=== PATIENT | male | born 1975 | race Two or more races ===

== ENCOUNTER → 2020-02-15 13:50 | Outpatient (BNVA) | payer SELFPAY | PROVIDERS: PCP Internal Medicine; Referring Provider Internal Medicine; Visit Provider Urology | DX: Z76.89 Persons encountering health services in other specified circumstances (principal) ==

== ENCOUNTER → 2020-03-28 13:21 | Outpatient (BNVA) | payer OTHER, SELFPAY | PROVIDERS: PCP Internal Medicine; Visit Provider Urology | DX: Z76.89 Persons encountering health services in other specified circumstances (principal) ==

== ENCOUNTER 2020-04-16 06:28 | Day surgery (SDC) | payer OTHER, SELFPAY ==
--- NOTE | 2020-04-13 12:13 | HO.ANESPROP2 ---
Documented by User: Shanon Suazo 04/13/20 12:13 HPI - Anesthesia Eval Consult details Narrative: 44yo M for Circumcision PMFSH Past Medical History Medical History Asthma Social History Social History Smoking Status: Never smoker Use of substances other than those prescribed or required for medical reasons: No Advance Directives: No Advance Directives Information Provided: Yes Meds Allergies Allergy/AdvReac Type Severity Reaction Status Date / Time No Known Allergies Allergy Verified 04/16/20 06:43 [No Known Allergies*] Exam Exam Date and Time: April 13, 2020 121 Assessment and Plan Assessment Anesthesia Assessment: Chart Reviewed Documented by User: Ariane Seaman 04/16/20 10:14 [facility] Past Medical History Medical History Asthma Social History Social History Smoking Status: Never smoker Use of substances other than those prescribed or required for medical reasons: No Advance Directives: No Advance Directives Information Provided: Yes Meds Allergies Allergy/AdvReac Type Severity Reaction Status Date / Time No Known Allergies Allergy Verified 04/16/20 06:43 [No Known Allergies*] Exam Airway Mallampati Class: II TM Dist: >3cm Neck ROM: Full Assessment and Plan Assessment Anesthesia Assessment: Anesthesia Plan Discussed and Chart Reviewed Final Anesthetic Review NPO: Yes ASA Class: II Final Preanesthetic Review: No Changes in Pt Med Stat, Meds/Allgs Chart Reviewed, Consent Obtained/Reviewed and Anes Risks/Benef Reviewed Patient Risk: Low Procedure Risk: Low Assessment/Block/Sedation in SS: Assess/Block/Sedation-SS Anesthetic Plan Anesthetic Plan: GA Disposition: Standard PACU
[2020-04-16 06:45] VITALS: BMI 24.5
[2020-04-16 06:50] VITALS: BP 132/90; PULSE 88; RESP 16; TEMP 36.8; O2SAT 97
[2020-04-16] MEDS: Lactated Ringers 1,000 ML 100 ML IVCONT (07:05)
[2020-04-16] MEDS: ceFAZolin Sodium/Dextrose,Iso 2 GM/50 ML PIGGYBACK IV (07:05)
--- NOTE | 2020-04-16 09:50 | MHC.SHP ---
Pre-Procedural Eval Section A The patient is an INPATIENT: No Changes since office visit: No Cold of Flu in the past 2 weeks, No New Medical Problems, No Changes in Medication and No Patient answered all questions The History & Physical has been completed within 30 days and I have reviewed it.: Yes Section B Chief Complaint: balanitis Allergies: Allergies Allergy/AdvReac Type Severity Reaction Status Date / Time No Known Allergies Allergy Verified 04/16/20 06:43 [No Known Allergies*] Plan I have reviewed the history and physical and performed a pertinent physical examination on my patient. No changes have occurred unless specified. circumcision
[2020-04-16 10:45] VITALS: BP 117/74; PULSE 76; RESP 16; TEMP 36.2; O2SAT 97
[2020-04-16 10:50] VITALS: BP 118/79; PULSE 87; RESP 16; O2SAT 96
[2020-04-16 10:55] VITALS: BP 101/71; PULSE 87; RESP 16; O2SAT 97
--- NOTE | 2020-04-16 10:57 | P.OP_ITS ---
Operative Note Operative Note Date of Service: 04/16/20 Narrative: PreOperative Diagnosis: Recurrent balanitis Post Operative Diagnosis: Recurrent balanitis Procedure: Circumcision plus frenular release Surgeon: Dr Shay Velasco Anesthesia: Local plus sedation Indications for procedure: This is a 44-year-old male. Recurrent balanitis. No respond to conservative therapy. Also noted to have been attached frenulum which give some pain during intercourse. Recommend circumcision with frenular release. Risks and benefits particularly related to scarring or bruising are discussed. Procedure: After informed consent was verified the patient was brought to the operating room and placed in a supine position. anesthesia was administered per protocol. The patient was prepped and draped in sterile fashion. Safety pause time-out performed. Antibiotics being given. Using a marking pen the proximal incision along with the sulcus of the penis was marked. Using a sharp knife and the incision was made for the proximal incision taken down to the avascular plane. The foreskin was retracted. A 2nd incision was made approximately 6 mm from the coronal surface circumferentially. His frontal was noticed to be attached. The frenulum was clamped and divided. This released the glans. The distal sulcal incision was completed. A sleeve of tissue was raised and removed from the penile shaft. All bleeding was controlled. Stay sutures were placed in a quadrant fashion reattaching the areas after hemostasis obtained. 3-0 chromic used for stay sutures. Each quadrant was then reattached using 3 4- 0 chromic interrupted sutures. At the completion of procedure the incision was washed and dried. A final dressing was placed consisting of bacitracin, Xeroform gauze, Raymond wrap and Coban. He tolerated the procedure well was extubated in the operating room transferred in stable condition recovery area Pathology: Recurrent balanitis Drains: None
--- NOTE | 2020-04-16 10:57 | PM.OP ---
Brief Operative Note Date of Service: 04/16/20 Pre-op diagnosis: Recurrent balanitis Post-op diagnosis: same Procedure: Circumcision Surgeon: Shay Velasco MD Anesthesia: MAC Estimated blood loss (mL): 0 Pathology: none sent Condition: stable Disposition: same day
[2020-04-16 11:00] VITALS: BP 126/89; PULSE 79; RESP 16; O2SAT 98
[2020-04-16 11:15] VITALS: BP 124/88; PULSE 78; RESP 16; TEMP 36.2; O2SAT 99
--- NOTE | 2020-04-16 11:46 | HO.POSTANES ---
Post Anesthesia Evaluation Post Anesthesia Evaluation Vital Signs: Vital Signs Temp Pulse Resp BP Pulse Ox 04/16/20 11:15 97.2 F 78 16 124/88 99 04/16/20 11:00 79 16 126/89 98 04/16/20 10:55 87 16 101/71 97 04/16/20 10:50 87 16 118/79 96 04/16/20 10:45 97.1 F 76 16 117/74 97 04/16/20 06:50 98.2 F 88 16 132/90 H 97 Anesthesia: General LMA Mental Status: Awake Pain Control: Satisfactory Nausea/Vomiting: None Hydration: Adequate Anesthesia-Related Issues: No Anes. Related Issues
== END 2020-04-16 11:51 | disposition home or self-care (01) ==
PROVIDERS: PCP Internal Medicine; Visit Provider Urology
PROC: (CPT 54161; principal; 2020-04-16 08:40)
DX: N48.1 Balanitis (principal); J45.40 Moderate persistent asthma, uncomplicated; Z79.899 Other long term (current) drug therapy
CPT/HCPCS: 54161; 88304; J0690; J1100; J2250; J2405; J3010

== ENCOUNTER → 2020-05-18 14:14 | Outpatient (BNVA) | payer OTHER, SELFPAY | PROVIDERS: PCP Internal Medicine; Visit Provider Urology | DX: Z13.89 Encounter for screening for other disorder (principal) | CPT/HCPCS: 99212 ==

== ENCOUNTER → 2020-12-17 10:49 | Outpatient (BNVA) | payer OTHER, SELFPAY | PROVIDERS: PCP Internal Medicine; Visit Provider Internal Medicine | DX: J30.9 Allergic rhinitis, unspecified (principal); J45.909 Unspecified asthma, uncomplicated | CPT/HCPCS: 99212 ==

== ENCOUNTER → 2021-06-12 10:34 | Outpatient (BNVA) | payer OTHER, SELFPAY | PROVIDERS: PCP Internal Medicine; Visit Provider Internal Medicine | DX: J45.909 Unspecified asthma, uncomplicated (principal) | CPT/HCPCS: 99212 ==

== ENCOUNTER → 2022-01-23 15:30 | Outpatient (BNVA) | payer OTHER, SELFPAY | PROVIDERS: PCP Internal Medicine; Visit Provider Internal Medicine | DX: J45.909 Unspecified asthma, uncomplicated (principal) | CPT/HCPCS: 99212 ==

== ENCOUNTER 2022-03-12 15:40 | Emergency (ER) | payer OTHER, SELFPAY ==
[2022-03-12 16:34] VITALS: BP 130/91; PULSE 98; RESP 20; TEMP 36.7; O2SAT 97; BMI 25.3
--- NOTE | 2022-03-12 16:34 | ED.URI ---
HPI - URI/Sore Throat General Chief Complaint: Upper Respiratory Symptoms Stated Complaint: Cough Time Seen by Provider: 03/12/22 18:28 Source: patient Mode of arrival: ambulatory Limitations: no limitations History of Present Illness HPI Narrative: 46-year-old male here with cough and cold symptoms with a history of asthma for the last week. No shortness of breath, chest pain, fevers, chills, leg swelling or leg pain. Patient using Advair and albuterol at home Related Data Previous Rx's Medication Instructions Recorded fluticasone propionate 110 2 puff PO BID #12 ea 08/21/21 mcg/actuation HFA aerosol inhaler (Flovent HFA) Ventolin HFA 90 mcg/actuation 2 puff PO Q4-6H PRN for wheezing 12/18/21 aerosol inhaler (albuterol sulfate) #18 ea montelukast 10 mg tablet 10 mg PO DAILY #90 tabs 12/18/21 fluticasone propionate 115 2 puff inhalation BID 30 days #12 01/23/22 mcg-salmeterol 21 mcg/actuation grams HFA inhaler (Advair HFA) azithromycin 250 mg tablet See Rx Instructions PO .COMPLEX #6 03/12/22 tabs prednisone 20 mg tablet 40 mg PO DAILY #10 tabs 03/12/22 Allergies Allergy/AdvReac Type Severity Reaction Status Date / Time No Known Allergies Allergy Verified 01/23/22 16:24 [No Known Allergies*] Review of Systems Review of Systems: Yes all other systems are reviewed and are negative Constitutional: Constitutional: Reports no additional constitutional complaints, Denies body ache(s), Denies chills, Denies fever(s), Denies headache(s) and Denies weakness Eyes: Eyes: Reports no additional eye complaints and Denies change in vision ENT: Reports system reviewed and no additional complaints, except as documented, Denies dizziness, Denies headache(s), Denies nasal congestion, Denies nasal discharge and Denies neck pain Cardiovascular: Cardiovascular: Reports no additional cardiovascular complaints, Denies chest pain, Denies leg edema and Denies dyspnea Respiratory: Respiratory: Reports no additional respiratory complaints, Reports cough, Denies dyspnea and Reports wheezing Gastrointestinal: Gastrointestinal: Reports no additional gastrointestinal complaints, Denies abdominal pain, Denies diarrhea, Denies nausea and Denies vomiting Genitourinary: Genitourinary: Denies urinary incontinence Musculoskeletal: Musculoskeletal: Reports no additional musculoskeletal complaints, Denies back pain, Denies arthralgias, Denies joint swelling, Denies neck pain, Denies numbness and Denies tingling Integumentary/Breasts: Skin/Breast: Reports system reviewed and no additional complaints, except as docu and Denies rash Neurologic: Reports system reviewed and no additional complaints, except as documented, Denies Abnormal speech present, Denies dizziness, Denies headache(s), Denies numbness, Denies tingling and Denies weakness Allergic/Immunologic: Allergic/Immunologic: Reports wheezing ON LICENSE OF [facility] Past Medical History Attestation statement: The following information was validated with the patient. Source: old records reviewed and nursing notes reviewed Medical History Allergic rhinitis Asthma Asthma Social History Social History Patient Tobacco Use Status: Never used Tobacco Advance Directives: No Advance Directives Information Provided: No Physical Exam Vital Signs: Vital Signs: Last Vital Signs Temp 98.1 F 03/12/22 16:34 Pulse 98 03/12/22 16:34 Resp 20 03/12/22 16:34 BP 130/91 H 03/12/22 16:34 Pulse Ox 97 03/12/22 16:34 O2 Del Method 03/12/22 16:34 BMI result Body Mass Index 25.3 Const: General: cooperative, healthy appearing, comfortable and no acute distress Orientation/consciousness: patient oriented x3 Limitations: no limitations HEENT: Head: Yes normal to inspection Ears: hearing grossly normal bilaterally and TM's normal bilaterally General nose exam: Normal external nose present Face and sinus: Yes normal facial exam Mouth: Normal oral and palatal mucosa present Throat: Yes posterior oropharynx normal, Yes tonsils normal and Yes uvula midline Eyes: General: appearance normal, both eyes and all related structures Pupils: Equal, round and reactive pupils present Neck: Neck: Yes normal visual inspection Chest: Chest palpation & inspection: normal inspection of the chest Resp: Other: Mild expiratory wheezing Effort & Inspection: normal respiratory effort Cardio: Rate: regular rate Rhythm: regular rhythm Peripheral pulses: Peripheral pulses 2+ throughout GI: Inspection: Yes normal to inspection Palpation (GI): Soft to palpation and nontender Auscultation: normal bowel sounds Back/Spine/Pelvis: Thoracic/Lumbar Spine: thoracic and lumbar spine normal to inspection Skin: General skin exam: no rashes or lesions noted Neuro: General: patient oriented x3, no focal motor deficits and normal sensation to monofilament Cranial nerves: Yes Equal, round and reactive pupils present Cognition (Neuro): normal cognition Speech: No Abnormal speech present Gait exam (Neuro): Normal gait present Motor exam (neuro): 5/5 motor strength present throughout Extrem: General: Yes normal to inspection Course Course Course Narrative: This is a rapid medical exam. Defer additional HPI, ROS and PE to prior provider. 46-year-old male here with cough and cold symptoms with a history of asthma for the last week. Vitals stable. Will send testing for flu, COVID, RSV Reevaluation(s) Reevaluation #1: Testing for flu, COVID, RSV are negative. Patient with mild expiratory wheezing on exam. Due to length of symptoms consider bronchitis. Low concern for pneumonia as patient is well-appearing with no fever. Patient will be discharged home with prednisone for 5 days as well as antibiotics for bronchitis. Patient reports adequate supply of inhalers at home. Reviewed worrisome signs and symptoms of when to return to the emergency room. Comfortable discharge home. Perc 0 Medical Decision Making Medical Decision Making MDM Narrative: 46year-old male here with cough and cold symptoms with a history of asthma for the last week Flu, COVID, RSV testing sent from triage. Differential Diagnosis Differential Diagnoses: The differential diagnosis associated with the presentation includes Asthma exacerbation, viral syndrome, bronchitis Lab Data Labs: Lab Results 03/12/22 Range/Units 17:12 Influenza Type A (PCR) NEGATIVE (Negative) Influenza Type B (PCR) NEGATIVE (Negative) RSV RNA Qual (PCR) NEGATIVE (Negative) SARS-CoV-2 RNA (RT-PCR) NEGATIVE (Negative) Discharge Plan Discharge Clinical Impression: Bronchitis Patient Disposition: Home, Self-Care Instructions: Acute Bronchitis (ED) Additional Instructions: Testing for flu, covid and rsv are negative Prescriptions: New prednisone 20 mg tablet 40 mg PO DAILY Qty: 10 0RF azithromycin 250 mg tablet See Rx Instructions .ROUTE .COMPLEX Qty: 6 0RF Rx Instructions: For 250 mg dose pack: take 500 mg today (day 1), then 250 mg for 4 days (days 2-5) No Action Flovent HFA 110 mcg/actuation HFA aerosol inhaler 2 puff PO BID Qty: 12 5RF montelukast 10 mg tablet 10 mg PO DAILY Qty: 90 1RF albuterol sulfate [Ventolin HFA] 90 mcg/actuation HFA aerosol inhaler 2 puff PO Q4-6H PRN (Reason: for wheezing) Qty: 18 3RF Advair HFA 115-21 mcg/actuation HFA aerosol inhaler 2 puff inhalation BID 30 Days Qty: 12 5RF Referrals: Teresa Rodrigez MD [Primary Care Provider] - Stand Alone Forms: Work/School Release Interventions: ED Discharge Assessment Last Done: 03/12/22 18:52
[2022-03-12 18:02] LABS: Influenza A PCR NEGATIVE (Negative); Influenza B PCR NEGATIVE (Negative); Resp Syncy Virus RNA Qual PCR NEGATIVE (Negative); SARS COV2 PCR INHOUSE NEGATIVE (Negative)
== END 2022-03-12 18:52 | disposition home or self-care (01) ==
PROVIDERS: Nurse Practitioner Family; Emergency Provider Emergency Medicine; PCP Internal Medicine
DX: J40 Bronchitis, not specified as acute or chronic (principal); Z20.822 Contact with and (suspected) exposure to COVID-19
CPT/HCPCS: 0241U; 99282; 99283

== ENCOUNTER → 2022-03-26 15:48 | Outpatient (BNVA) | payer OTHER, SELFPAY | PROVIDERS: PCP Internal Medicine; Visit Provider Internal Medicine | DX: J45.909 Unspecified asthma, uncomplicated (principal); Z91.09 Other allergy status, other than to drugs and biological substances | CPT/HCPCS: 99212 ==

== ENCOUNTER 2022-11-20 16:06 | Outpatient (AMB) | payer OTHER, SELFPAY ==
[2022-11-20 16:11] VITALS: BP 112/72; PULSE 67; O2SAT 98; BMI 26.5
--- NOTE | 2022-11-20 16:11 | A.OFFVIS_ITS ---
Intake Vital Signs 11/20/22 16:11 Height 5 ft 7 in Weight 169 lb BMI 26.5 BP 112/72 Blood Pressure Location Lt brachial Position Sitting Pulse 67 Pulse Source Pulse Oximeter Pulse Oximetry (%) 98 Oxygen Delivery Method Room Air Intake Visit Reasons: asthma Intake Note: pt is here for follow up and states he is doing well. Allergies No Known Allergies [No Known Allergies*] Allergy (Verified 11/20/22 16:33) Medication List - Last Reconciled 11/20/22 by Rasta Solis MD fluticasone propion-salmeterol 115-21 mcg/actuation (Advair HFA) 2 puffs inhalation BID 30 days montelukast 10 mg PO DAILY Ventolin HFA 90 mcg/actuation (albuterol sulfate) 2 puffs PO Q4-6H PRN NS Do you need a note to return to daycare/school/sports/work: No HPI asthma HPI Details This 46 years old gentleman is here after 1 year for follow-up. His asthma and chronic allergic rhinitis has remained under good. Control with the current medical regimen He still has mild nasal congestion off and on and occasional bout of cough and wheezing. But mostly his symptoms remain under good control. He has had no acute. Respiratory infections He is a nonsmoker. [facility] Medical History Allergic rhinitis Asthma Asthma Social History Patient Tobacco Use Status: Never used Tobacco Review of Systems Const All systems reviewed & are unremarkable except as noted in HPI and below Eyes Reports no additional complaints ENT Reports nasal congestion (Off and on) and Reports nasal discharge (Off and on) Card Reports no additional complaints Resp Reports as per HPI GI Reports no additional complaints Reports no additional complaints Musc Reports no additional complaints Skin/Breast Reports system reviewed and no additional complaints, except as documented Neuro Reports no additional complaints Psych Reports no additional complaints Physical Exam Vital Signs: Last Vital Signs Pulse 67 11/20/22 16:11 BP 112/72 11/20/22 16:11 Pulse Ox 98 11/20/22 16:11 Oxygen Delivery Method Room Air 11/20/22 16:11 BMI result Body Mass Index 26.5 Const General: healthy appearing, comfortable, no acute distress, alert and awake Orientation/consciousness: patient oriented x3 HEENT Head: Yes normal to inspection General nose exam: No nasal polyps present, No nasal discharge present and Other nasal findings present (MILD NASAL CONGESTION) Face and sinus: Yes sinuses nontender Mouth: oropharynx normal Throat: Yes posterior oropharynx normal Eyes General: appearance normal, both eyes and all related structures Neck Neck: Yes normal visual inspection, Yes no lymphadenopathy, Yes trachea midline and Yes no JVD Thyroid: Thyroid normal Chest Chest palpation & inspection: normal inspection of the chest, normal palpation of entire chest wall and no tenderness Resp Other: PERCUSSION NOTE IS RESONANT, HAS GOOD BREATH SOUNDS ON BOTH SIDES, TODAY A FEW EXPIRATORY WHEEZES WERE HEARD OVER THE MIDDLE OF THE CHEST. Cardio Palpation: normal PMI Rate: regular rate Rhythm: regular rhythm Heart sounds: no gallops and no murmurs Peripheral pulses: Peripheral pulses 2+ throughout GI Palpation (GI): Soft to palpation, Tenderness to palpation present (GI), No hepatosplenomegaly present and Palpable mass present Auscultation: normal bowel sounds Back/Spine/Pelvis Thoracic/Lumbar Spine: thoracic and lumbar spine normal to inspection Skin General skin exam: no rashes or lesions noted Neuro General: patient oriented x3 and no focal motor deficits Cranial nerves: Yes CN's II-XII intact bilaterally Extrem General: Yes normal to inspection, Yes no clubbing, cyanosis or edema and Yes no calf tenderness Psych Appearance: grossly normal and well kempt Speech and movement: Normal speech and movement present Assessment & Plan Assessment & Plan (1) Asthma: Comment: HE HAS CHRONIC ALLERGIC BRONCHIAL ASTHMA, MILD , INTERMITTENT. WELL CONTROLLED WITH HIS CURRENT REGIMEN, TX: ADVISED TO CONTINUE ADVAIR HFA 115-21 2 PUFFS B.I.D. CONTINUE ALBUTEROL HFA 2 PUFFS Q 4-6 HOURS ONLY P.R.N.. HE IS ALSO ON MONTELUKAST 10 MG DAILY MAINLY FOR ALLERGIC RHINITIS. Code(s): J45.909 - Unspecified asthma, uncomplicated (2) Allergic rhinitis: Comment: HE HAS CHRONIC ALLERGIC RHINITIS AROUND THE YEAR ,DUE TO ENVIRONMENTAL ALLERGIES. TX: FLONASE 2 SPRAY EACH NOSTRIL DAILY MONTELUKAST 10 MG ONCE A DAY. USE LORATADINE 10 MG OR CITRUS IN 10 MG ONCE A DAY ONLY P.R.N. Code(s): J30.9 - Allergic rhinitis, unspecified Coding Level of Care Code Est Pt Level 3 (42956) Diagnoses Asthma J45.909 Allergic rhinitis J30.9
== END 2022-11-20 16:22 | disposition home or self-care (01) ==
PROVIDERS: PCP Internal Medicine; Visit Provider Internal Medicine
DX: J45.909 Unspecified asthma, uncomplicated (principal); J30.9 Allergic rhinitis, unspecified
CPT/HCPCS: 99213

== ENCOUNTER → 2022-11-20 16:06 | Outpatient (BNVA) | payer OTHER, SELFPAY | PROVIDERS: PCP Internal Medicine; Visit Provider Internal Medicine | DX: J45.909 Unspecified asthma, uncomplicated (principal); J30.89 Other allergic rhinitis; Z79.899 Other long term (current) drug therapy | CPT/HCPCS: 99212 ==

== ENCOUNTER 2023-11-16 15:17 | Outpatient (AMB) | payer OTHER, SELFPAY ==
--- NOTE | 2023-11-16 15:19 | MHC.OFFVIS ---
Vital Signs 11/16/23 15:20 Height 5 ft 7 in Weight 163 lb BMI 25.5 BP 118/67 Blood Pressure Location Lt brachial Position Sitting Pulse 80 Pulse Source Doppler Pulse Oximetry (%) 95 Oxygen Delivery Method Room Air Intake Visit Reasons: asthma Allergies No Known Allergies [No Known Allergies*] Allergy (Verified 11/16/23 15:51) Medication List - Last Reconciled 11/16/23 by Rasta Solis MD Advair HFA 115-21 mcg/actuation (fluticasone propion-salmeterol) 2 puffs PO BID NS montelukast 10 mg PO DAILY Ventolin HFA 90 mcg/actuation (albuterol sulfate) 2 puffs PO Q4-6H PRN NS Do you need a note to return to daycare/school/sports/work: No HPI HPI asthma: Details: THIS 47 YEARS OLD GENTLEMAN, COMES AFTER 1 YEAR FOR FOLLOW-UP FOR HIS BRONCHIAL ASTHMA. HE CLAIMS THAT HIS ASTHMA HAS REMAINED UNDER GOOD CONTROL WITHOUT ANY ACUTE EXACERBATION. HE DENIES COUGH OR WHEEZING. HE DOES USE HIS ADVAIR TWICE A DAY AND HARDLY NEEDS TO USE VENTOLIN. HE IS TAKING MONTELUKAST 10 MG DAILY FOR HIS ALLERGIC RHINITIS. HE WORKS IN A WAREHOUSE AND MOSTLY DRIVES VAN . HE DENIES ANY ACTIVE SNEEZING OR RUNNY NOSE BUT HIS NOSE REMAINS HABITUALLY BLOCKED. [facility] Medical History (Updated 11/16/23 @ 15:58 by Rasta Solis MD) Nasal polyposis Asthma Allergic rhinitis Asthma Social History Comment: stated tolerable Patient Tobacco Use Status: Never used Tobacco Review of Systems Const All systems reviewed & are unremarkable except as noted in HPI and below Eyes Reports no additional complaints ENT Reports nasal congestion (Off and on) and Reports nasal discharge (Off and on) Card Reports no additional complaints Resp Reports as per HPI GI Reports no additional complaints Reports no additional complaints Musc Reports no additional complaints Skin/Breast Reports system reviewed and no additional complaints, except as documented Neuro Reports no additional complaints Psych Reports no additional complaints Physical Exam Vital Signs: Last Vital Signs Pulse 80 11/16/23 15:20 BP 118/67 11/16/23 15:20 Pulse Ox 95 11/16/23 15:20 Oxygen Delivery Method Room Air 11/16/23 15:20 BMI result Body Mass Index 25.5 Const General: healthy appearing, comfortable, no acute distress, alert and awake Orientation/consciousness: patient oriented x3 HEENT Head: Yes normal to inspection General nose exam: nasal polyps (HE HAS LARGE NASAL POLYPS ON BOTH SIDES ALMOST BLOCKING HIS NOSTRILS), No nasal discharge present and Other nasal findings present (MILD NASAL CONGESTION) Face and sinus: Yes sinuses nontender Mouth: oropharynx normal Throat: Yes posterior oropharynx normal Eyes General: appearance normal, both eyes and all related structures Neck Neck: Yes normal visual inspection, Yes no lymphadenopathy, Yes trachea midline and Yes no JVD Thyroid: Thyroid normal Chest Chest palpation & inspection: normal inspection of the chest, normal palpation of entire chest wall and no tenderness Resp Other: PERCUSSION NOTE IS RESONANT, HAS GOOD BREATH SOUNDS ON BOTH SIDES, TODAY A FEW EXPIRATORY WHEEZES WERE HEARD OVER THE MIDDLE OF THE CHEST. Cardio Palpation: normal PMI Rate: regular rate Rhythm: regular rhythm Heart sounds: no gallops and no murmurs Peripheral pulses: Peripheral pulses 2+ throughout GI Palpation (GI): Soft to palpation, Tenderness to palpation present (GI), No hepatosplenomegaly present and Palpable mass present Auscultation: normal bowel sounds Back/Spine/Pelvis Thoracic/Lumbar Spine: thoracic and lumbar spine normal to inspection Skin General skin exam: no rashes or lesions noted Neuro General: patient oriented x3 and no focal motor deficits Cranial nerves: Yes CN's II-XII intact bilaterally Extrem General: Yes normal to inspection, Yes no clubbing, cyanosis or edema and Yes no calf tenderness Psych Appearance: grossly normal and well kempt Speech and movement: Normal speech and movement present Assessment & Plan Assessment & Plan (1) Asthma: Comment: HE HAS CHRONIC ALLERGIC BRONCHIAL ASTHMA, MILD , INTERMITTENT. WELL CONTROLLED WITH HIS CURRENT REGIMEN, Code(s): J45.909 - Unspecified asthma, uncomplicated Category: Medical Plan: [place]: ADVISED TO CONTINUE ADVAIR HFA 115-21 2 PUFFS B.I.D. * GARGLE THE THROAT WITH LUKEWARM WATER AND SALT, THOROUGHLY AFTER USING THE ADVAIR HFA CONTINUE ALBUTEROL HFA 2 PUFFS Q 4-6 HOURS ONLY P.R.N.. HE IS ALSO ON MONTELUKAST 10 MG DAILY MAINLY FOR ALLERGIC RHINITIS. (2) Allergic rhinitis: Comment: HE HAS CHRONIC ALLERGIC RHINITIS AROUND THE YEAR ,DUE TO ENVIRONMENTAL ALLERGIES. Code(s): J30.9 - Allergic rhinitis, unspecified Category: Medical Plan: [place]: FLONASE 2 SPRAY EACH NOSTRIL DAILY MONTELUKAST 10 MG ONCE A DAY. USE LORATADINE 10 MG OR CETRAZINE 10 MG ONCE A DAY ONLY P.R.N. (3) Nasal polyposis: Comment: LARGE NASAL POLYPS SEEN IN BOTH NOSTRILS ALMOST BLOCKING THE NASAL CAVITY COMPLETELY THIS IS PART OF HIS CHRONIC ALLERGIC RHINITIS. Code(s): J33.9 - Nasal polyp, unspecified Category: Medical Plan: TREATMENT WRITTEN UNDER ALLERGIC RHINITIS. I ALSO EDUCATED HIM ABOUT THE NASAL POLYPS AND ADVISE THAT HE SHOULD SEE AN ENT SPECIALIST. I ADVISED HIM THAT HE HAS TO SEE HIS PRIMARY CARE PHYSICIAN 1ST AND THEN ASK FOR REFERRAL TO AN ENT SPECIALIST . Coding Level of Care Code Est Pt Level 3 (20809) Diagnoses Asthma J45.909 Allergic rhinitis J30.9 Nasal polyposis J33.9
[2023-11-16 15:20] VITALS: BP 118/67; PULSE 80; O2SAT 95; BMI 25.5
== END 2023-11-16 15:50 | disposition home or self-care (01) ==
PROVIDERS: PCP Internal Medicine; Visit Provider Internal Medicine
DX: J45.909 Unspecified asthma, uncomplicated (principal); J30.9 Allergic rhinitis, unspecified; J33.9 Nasal polyp, unspecified
CPT/HCPCS: 99213

== ENCOUNTER → 2023-11-16 15:17 | Outpatient (BNVA) | payer OTHER, SELFPAY | PROVIDERS: PCP Internal Medicine; Visit Provider Internal Medicine | DX: J45.909 Unspecified asthma, uncomplicated (principal); J30.9 Allergic rhinitis, unspecified; J33.9 Nasal polyp, unspecified | CPT/HCPCS: 99212 ==

== ENCOUNTER → 2025-01-11 13:07 | Outpatient (AMB) | payer OTHER, SELFPAY ==
[2025-01-11 13:18] VITALS: BP 110/80; PULSE 75; O2SAT 97; BMI 26.8
--- NOTE | 2025-01-11 13:18 | MHC.OFFVIS ---
Vital Signs 01/11/25 13:18 Height 5 ft 7 in Weight 170 lb 13.732 oz BMI 26.8 BP 110/80 Blood Pressure Location Lt brachial Position Sitting Pulse 75 Pulse Source Pulse Oximeter Pulse Oximetry (%) 97 Oxygen Delivery Method Room Air Intake Visit Reasons: Asthma Intake Note: pt is here for follow up and states his asthma has been fine Production Staff Worker Required: No Color Depositing Machine Tender: Color Depositing Machine Tender offered & declined Allergies No Known Allergies (No Known Allergies*) Allergy (Verified 01/11/25 13:32) Medication List - Last Reconciled 01/11/25 by Rasta Solis MD Advair HFA 115-21 mcg/actuation (fluticasone propion-salmeterol) 2 puffs PO BID NS montelukast 10 mg PO DAILY Ventolin HFA 90 mcg/actuation (albuterol sulfate) 2 puffs PO Q4-6H PRN NS Do you need a note to return to daycare/school/sports/work: No HPI HPI Asthma: Details: THIS 49 YEARS OLD GENTLEMAN IS HERE FOR FOLLOW-UP FOR HIS BRONCHIAL ASTHMA AND ALLERGIC RHINITIS. HE HAS BEEN DOING VERY WELL DURING THE WHOLE YEAR WITHOUT ANY ACUTE EXACERBATION. JUST HAS INTERMITTENT BOUTS OF RUNNY NOSE WITH POSTNASAL DISCHARGE AND ALSO OCCASIONAL WHEEZING. HE HAS BEEN USING THE SAME MEDICATIONS PRESCRIBED LAST YEAR. HE IS NONSMOKER. [facility] Medical History Nasal polyposis Asthma Allergic rhinitis Asthma Social History Comment: stated tolerable Patient Tobacco Use Status: Never used Tobacco Review of Systems Const All systems reviewed & are unremarkable except as noted in HPI and below Eyes Reports no additional complaints ENT Reports nasal congestion (Off and on) and Reports nasal discharge (Off and on) Card Reports no additional complaints Resp Reports as per HPI GI Reports no additional complaints Reports no additional complaints Musc Reports no additional complaints Skin/Breast Reports system reviewed and no additional complaints, except as documented Neuro Reports no additional complaints Psych Reports no additional complaints Physical Exam Vital Signs: Last Vital Signs Pulse 75 01/11/25 13:18 BP 110/80 01/11/25 13:18 Pulse Ox 97 01/11/25 13:18 Oxygen Delivery Method Room Air 01/11/25 13:18 BMI result Body Mass Index 26.8 Const General: healthy appearing, comfortable, no acute distress, alert and awake Orientation/consciousness: patient oriented x3 HEENT Head: Yes normal to inspection General nose exam: nasal polyps (HE HAS LARGE NASAL POLYPS ON BOTH SIDES ,, MODERATELY ENLARGED ), No nasal discharge present and Other nasal findings present (MILD NASAL CONGESTION) Face and sinus: Yes sinuses nontender Mouth: oropharynx normal Throat: Yes posterior oropharynx normal Eyes General: appearance normal, both eyes and all related structures Neck Neck: Yes normal visual inspection, Yes no lymphadenopathy, Yes trachea midline and Yes no JVD Thyroid: Thyroid normal Chest Chest palpation & inspection: normal inspection of the chest, normal palpation of entire chest wall and no tenderness Resp Other: PERCUSSION NOTE IS RESONANT, HAS GOOD BREATH SOUNDS ON BOTH SIDES, NO WHEEZES RHONCHI OR CREPITATIONS ARE HEARD TODAY. Cardio Palpation: normal PMI Rate: regular rate Rhythm: regular rhythm Heart sounds: no gallops and no murmurs Peripheral pulses: Peripheral pulses 2+ throughout GI Palpation (GI): Soft to palpation, Tenderness to palpation present (GI), No hepatosplenomegaly present and Palpable mass present Auscultation: normal bowel sounds Back/Spine/Pelvis Thoracic/Lumbar Spine: thoracic and lumbar spine normal to inspection Skin General skin exam: no rashes or lesions noted Neuro General: patient oriented x3 and no focal motor deficits Cranial nerves: Yes CN's II-XII intact bilaterally Extrem General: Yes normal to inspection, Yes no clubbing, cyanosis or edema and Yes no calf tenderness Psych Appearance: grossly normal and well kempt Speech and movement: Normal speech and movement present Assessment & Plan Assessment & Plan (1) Asthma: Comment: HE HAS CHRONIC ALLERGIC BRONCHIAL ASTHMA, MILD , INTERMITTENT. WELL CONTROLLED WITH HIS CURRENT REGIMEN, Code(s): J45.909 - Unspecified asthma, uncomplicated Category: Medical Plan: CONTINUE TO USE ADVAIR HFA 115-21 2 INHALATIONS B.I.D. (2) Allergic rhinitis: Comment: HE HAS CHRONIC ALLERGIC RHINITIS AROUND THE YEAR ,DUE TO ENVIRONMENTAL ALLERGIES. CONTROLLED AND STABLE. Code(s): J30.9 - Allergic rhinitis, unspecified Category: Medical Plan: CONTINUE MONTELUKAST 10 MG DAILY. USE FLONASE NASAL SPRAY 1 SPRAY IN EACH NOSTRIL DAILY (3) Nasal polyposis: Comment: LARGE NASAL POLYPS SEEN IN BOTH NOSTRILS , SMALLER IN SIZE COMPARED TO LAST YEAR AND NOT BLOCKING THE NOSTRILS COMPLETELY. Code(s): J33.9 - Nasal polyp, unspecified Category: Medical Plan: SAME UNDER ALLERGIC RHINITIS Medications: Changed From Advair HFA 115-21 mcg/actuation (fluticasone propion-salmeterol) 2 puffs PO BID 12 grams 5RF NS J45.909 - Unspecified asthma, uncomplicated To Advair HFA 115-21 mcg/actuation (fluticasone propion-salmeterol) 2 puffs PO BID 12 grams 5RF ASTHMA 30 days NS J45.909 - Unspecified asthma, uncomplicated From montelukast 10 mg PO DAILY 90 tabs 1RF To montelukast 10 mg PO DAILY 90 tabs 3RF ALLERGIC RHINITIS 90 days Coding Level of Care Code Est Pt Level 3 (20231) Diagnoses Asthma J45.909 Allergic rhinitis J30.9 Nasal polyposis J33.9
== END ==
LOC: HO.HPS 13:07
PROVIDERS: PCP Internal Medicine; Visit Provider Internal Medicine
DX: J45.909 Unspecified asthma, uncomplicated (principal); J30.9 Allergic rhinitis, unspecified; J33.9 Nasal polyp, unspecified
CPT/HCPCS: 99213

== ENCOUNTER → 2025-01-11 13:07 | Outpatient (BNVA) | payer OTHER, SELFPAY | PROVIDERS: PCP Internal Medicine; Visit Provider Internal Medicine | DX: J45.20 Mild intermittent asthma, uncomplicated (principal); J30.9 Allergic rhinitis, unspecified; J33.9 Nasal polyp, unspecified | CPT/HCPCS: 99212 ==